=== PATIENT | female | born 1985 | race Hispanic/Latino ===

== ENCOUNTER 2024-02-04 19:00 | Inpatient (IN) | payer BC ==
[2024-02-04 19:59] VITALS: BMI 36.1
[2024-02-04] MEDS ORDERED: Carboprost 250 MCG/ML AMP IM PRN (20:50)
[2024-02-04] MEDS ORDERED: Lidocaine 1% (PF) 30 ML VIAL SC PRN (20:50)
[2024-02-04] MEDS ORDERED: hydrALAZINE 20 MG/ML VIAL SLOW IVP PRN (20:50)
[2024-02-04] MEDS ORDERED: Methylergonovine 0.2 MG/ML VIAL IM PRN (20:50)
[2024-02-04] MEDS ORDERED: Zolpidem Tartrate 5 MG TAB PO PRN (20:50)
[2024-02-04] MEDS ORDERED: HYDROcodone/Acetaminophen 5/325 mg Tablet PO PRN (20:50)
[2024-02-04] MEDS ORDERED: fentaNYL 50 mcg/mL 1 mL Vial SLOW IVP PRN (20:50)
[2024-02-04] MEDS ORDERED: Ondansetron PF 4 MG/2 ML Vial IVP PRN (20:50)
[2024-02-04] MEDS ORDERED: Diphenoxylate HCl/Atropine Tablet PO PRN (20:50)
[2024-02-04] MEDS ORDERED: Acetaminophen 500 MG TAB PO PRN (20:50)
[2024-02-04] MEDS ORDERED: Promethazine HCl 25 MG/ML VIAL IM PRN (20:50)
[2024-02-04] MEDS ORDERED: Misoprostol 200 MCG TAB PR PRN (20:50)
[2024-02-04] MEDS ORDERED: Lactated Ringer's 1,000 ML IV SCH (21:00)
[2024-02-04 21:43] LABS: Hematocrit 37.9 % (34.9-44.5); Hemoglobin 13.1 g/dL (12.0-15.5); Mean Corpuscular HGB CONC 34.6 g/dL (32.0-36.0); Mean Corpuscular Hemoglobin 29.6 pg (27.0-33.0); Mean Corpuscular Volume 85.6 fL (81.6-98.3); Mean Platelet Volume 10.4 fL (7.4-10.4); Platelet Count 220 10x3/uL (150-450); RBC Distribution Width 14.4 % (11.5-14.5); Red Blood Cell (RBC) Count 4.43 10x6/uL (3.90-5.03); White Blood Cell (WBC) Count 10.6 10x3/uL (3.5-10.5)
[2024-02-04] MEDS: Misoprostol 100 MCG TAB VAG SCH (21:44)
[2024-02-04 22:19] LABS: HBsAg Index 0.17 S/CO (0-0.99); Hep B Surf Ag - L&D Non-Reactive S/CO (NonReactive); Syphilis Antibody Nonreactive (Nonreactive); Syphilis Antibody Index 0.06 S/CO (<1.00 Non-Reactive)
[2024-02-05] MEDS ORDERED: Ondansetron PF 4 MG/2 ML Vial IVP PRN ×2 (09:17→14:18)
[2024-02-05] MEDS ORDERED: diphenhydrAMINE 50 MG/ML VIAL IVP PRN (09:17)
[2024-02-05] MEDS ORDERED: ePHEDrine Sulfate 50 MG/10 ML VIAL SLOW IVP PRN (09:17)
[2024-02-05] MEDS ORDERED: Promethazine HCl 25 MG/ML VIAL IM PRN ×2 (09:17→14:18)
[2024-02-05] MEDS ORDERED: Acetaminophen 325 MG TAB PO PRN (09:17)
[2024-02-05] MEDS ORDERED: Moisturizing Cream (Eucerin) 113 GM JAR TOP PRN (09:17)
[2024-02-05] MEDS ORDERED: Naloxone HCl 0.4 mg/ml Vial IVP PRN ×2 (09:17)
[2024-02-05] MEDS ORDERED: Lactated Ringer's 500 ML IV PRN (09:17)
[2024-02-05] MEDS: fentaNYL/Ropivacaine Epidural 100 ML ONE (09:20)
[2024-02-05] MEDS ORDERED: Communication Order-Pharmacy FS SCH (09:30)
[2024-02-05] MEDS ORDERED: fentaNYL 2 mcg/Ropivacaine 0.2% Epidural 100 ML CADD EPIDURAL SCH (09:30)
[2024-02-05] MEDS: Oxytocin 30 units/NS 500 ML 500 ML IV SCH ×2 (09:52→12:30)
[2024-02-05] MEDS: Ibuprofen 800 MG TAB PO PRN (14:17)
[2024-02-05] MEDS ORDERED: Bisacodyl 10 MG SUPP PR PRN (14:18)
[2024-02-05] MEDS ORDERED: diphenhydrAMINE 25 MG CAP PO PRN (14:18)
[2024-02-05] MEDS ORDERED: HYDROcodone/Acetaminophen 5/325 mg Tablet PO PRN (14:18)
[2024-02-05] MEDS ORDERED: Milk Of Magnesia 30 ML UDCUP PO PRN (14:18)
[2024-02-05] MEDS ORDERED: Lanolin Ointment 7 GM TUBE TOP PRN (14:18)
[2024-02-05] MEDS ORDERED: Preparation H Ointment 28 GM TUBE PR PRN (14:18)
[2024-02-05] MEDS ORDERED: hydrALAZINE 20 MG/ML VIAL SLOW IVP PRN (14:18)
[2024-02-05] MEDS: Boostrix 0.5 ML (Tdap) VIAL (>/=7 yrs of age) IM ONE (17:50)
[2024-02-05] MEDS: Ferrous Sulfate 325 MG TAB PO SCH (18:17)
[2024-02-05] MEDS: HYDROcodone/Acetaminophen 5/325 mg Tablet PO PRN (21:10)
[2024-02-05] MEDS: Docusate 100 MG CAP PO SCH (21:10)
[2024-02-05] MEDS: Ibuprofen 800 MG TAB PO SCH (22:26)
[2024-02-06] MEDS: Levothyroxine Sodium 125 MCG TAB PO SCH (05:20)
[2024-02-06] MEDS: Prenatal Vitamin 1 TAB PO SCH (08:49)
[2024-02-06] MEDS: Benzocaine-Menthol 82.5 ML CAN TOP PRN (08:55)
[2024-02-06 11:13] VITALS: BP 96/53; TEMP 97.9
== END 2024-02-06 14:55 | disposition home or self-care (01) | DRG 807 ==
LOC: CSHLD 19:32 → CSHPP 02-05 15:25
PROVIDERS: ADMIT Student in an Organized Health Care Education/Training Program; ATTEND Student in an Organized Health Care Education/Training Program
PROC: 10E0XZZ Delivery of Products of Conception, External Approach (ICD-10-PCS; principal; 2024-02-05)
PROC: 0KQM0ZZ Repair Perineum Muscle, Open Approach (ICD-10-PCS; 2024-02-05)
DX: O48.0 Post-term pregnancy (principal); Z37.0 Single live birth; Z3A.40 40 weeks gestation of pregnancy; O70.1 Second degree perineal laceration during delivery; O99.284 Endocrine, nutritional and metabolic diseases complicating childbirth; E03.9 Hypothyroidism, unspecified; Z79.899 Other long term (current) drug therapy
CPT/HCPCS: 36415; 85027; 86780; 86850; 86900; 86901; 87340; J2590

== ENCOUNTER 2025-06-19 12:56 | Outpatient (CLI) | payer BC | END 2025-06-19 12:57 | disposition home or self-care (01) | LOC: CSHDTY/OP 12:56 | PROVIDERS: ATTEND Nurse Practitioner Family | DX: Z71.3 Dietary counseling and surveillance (principal) | CPT/HCPCS: 97802 ==